=== PATIENT | female | born 1975 | race American Indian/Alaskan Native ===

== ENCOUNTER 2018-12-02 18:17 | Emergency (ER) | payer OTHER ==
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
[2018-12-02 18:57] VITALS: BP 126/98
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
[2018-12-02] MEDS ORDERED: MORPHINE IV ONE (22:36)
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
== END 2018-12-03 01:25 | disposition home or self-care (01) ==
LOC: ED 18:17
DX: S16.1XXA Strain of muscle, fascia and tendon at neck level, initial encounter (principal); R10.819 Abdominal tenderness, unspecified site; R07.89 Other chest pain; M25.561 Pain in right knee; M25.562 Pain in left knee; M25.512 Pain in left shoulder; M32.9 Systemic lupus erythematosus, unspecified; V89.2XXA Person injured in unspecified motor-vehicle accident, traffic, initial encounter; Y93.89 Activity, other specified; Y92.488 Other paved roadways as the place of occurrence of the external cause; Y99.8 Other external cause status
CPT/HCPCS: 70491; 71260; 73030; 73562; 74177; 96374; 99284; J2270; Q9967